=== PATIENT | male | born 1995 | race Hispanic/Latino ===

== ENCOUNTER 2017-02-01 01:51 | Emergency (ER) | payer OTHER ==
[2017-02-01] MEDS ORDERED: Lidocaine 2% w Epi 1:100,000 Inj IJ STA (02:02)
[2017-02-01] MEDS ORDERED: Lidocaine 1% w Epi 1:100,000 Inj ONE (02:05)
--- NOTE | 2017-02-01 03:10 | ED PDOC ---
HPI: Skin/Bite Injury Time Seen by Provider: 02/01/17 02:01 Chief Complaint (Nursing): Alcohol Ingestion Chief Complaint (Provider): Laceration x 3 History Per: Patient, Other (Friend ) Additional Complaint(s): Pt was out drinking with friends. When they got home he was unable to get into his apartment because the silva was not working. Pt then broke window to get into apartment and has laceration on the right shoulder, right elbow and right neck. Tetanus UTD. Past Medical History Reviewed: Historical Data, Nursing Documentation, Vital Signs Vital Signs: Last Vital Signs Temp 98.4 F 02/01/17 01:55 Pulse 104 H 02/01/17 01:55 Resp 16 02/01/17 01:55 BP 148/83 02/01/17 01:55 Pulse Ox 93 L 02/01/17 03:18 - Medical History PMH: No Chronic Diseases - Surgical History Surgical History: No Surg Hx - Family History Family History: States: No Known Family Hx - Living Arrangements Living Arrangements: With Family - Social History Current smoker - smoking cessation education provided: No Alcohol: Occasional Drugs: Denies - Home Medications Home Medications: Ambulatory Orders Medication Instructions Recorded Cephalexin [Keflex] 500 mg PO BID #14 capsule 02/01/17 - Allergies Allergies/Adverse Reactions: Allergies Allergy/AdvReac Type Severity Reaction Status Date / Time peanut Allergy ANAPHYLAXIS Verified 02/01/17 01:54 Review of Systems ROS Statement: Except As Marked, All Systems Reviewed And Found Negative Constitutional: Negative for: Fever, Chills Skin: Positive for: Other Physical Exam - Reviewed Nursing Documentation Reviewed: Yes Vital Signs Reviewed: Yes - Physical Exam Appears: Positive for: Well, Non-toxic, No Acute Distress Head Exam: Positive for: ATRAUMATIC, NORMAL INSPECTION, NORMOCEPHALIC Skin: Positive for: Warm. Negative for: Normal Color ((+) laceration irregular on the right shoulder, 9cm, (+) linear laceration on the right neck and right elbow. ) Eye Exam: Positive for: Normal appearance ENT: Positive for: Normal ENT Inspection Neck: Positive for: Normal, Painless ROM Cardiovascular/Chest: Positive for: Regular Rate, Rhythm Respiratory: Positive for: CNT, Normal Breath Sounds Gastrointestinal/Abdominal: Positive for: Normal Exam, Bowel Sounds, Soft Back: Positive for: Normal Inspection Extremity: Positive for: Normal ROM Neurologic/Psych: Positive for: Alert, Oriented - ECG O2 Sat by Pulse Oximetry: 93 Pulse Ox Interpretation: Normal Disposition - Clinical Impression Clinical Impression: Alcohol abuse, Laceration of neck, Laceration of shoulder, Laceration of elbow - Patient ED Disposition Is Patient to be Admitted: No Counseled Patient/Family Regarding: Diagnosis, Need For Followup - Disposition Disposition: Routine/Home Disposition Time: 03:18 Condition: GOOD Additional Instructions: DO not get wet for 24 hours. Keep clean and dry with antibiotic ointment. Antibiotics twice a day. Suture removal in 8-10 days. Return sooner for signs of infection. Prescriptions: Cephalexin [Keflex] 500 mg PO BID #14 capsule Instructions: Laceration (ED), Care For Your Stitches (ED) Laceration - Laceration Repair Left shoulder Wound Length (In cm): 9cm Description Of Wound: Irregular Wound Cleansed With: Sterile Saline Anesthesia: Lidocaine 1%, With Epi Wound Examination: Irrigated With Saline, No FB With Wound Exploration, No Tendon Injury With Wound Exploration Wound Closure: Suture Suture Technique And Material Used: Prolene (4.0 ) Wound Complexity: Intermediate Left elbow Wound Length (In cm): 3 Description Of Wound: Linear Anesthesia: Lidocaine 1%, With Epi Wound Examination: Irrigated With Saline, No FB With Wound Exploration, No Tendon Injury With Wound Exploration Suture Technique And Material Used: Prolene (#4 4.0) Wound Complexity: Simple Left neck Wound Length (In cm): 3 Description Of Wound: Linear Anesthesia: Lidocaine 1%, With Epi Wound Examination: Irrigated With Saline, No FB With Wound Exploration, No Tendon Injury With Wound Exploration Wound Closure: Suture Suture Technique And Material Used: Prolene (5.0) Wound Complexity: Simple
[2017-02-01 05:25] VITALS: BP 133/72; PULSE 78; RESP 18; TEMP 97.9; O2SAT 100
== END 2017-02-01 05:27 | disposition home or self-care (01) ==
LOC: H.ER 01:51
DX: F10.10 Alcohol abuse, uncomplicated (principal); S11.91XA Laceration without foreign body of unspecified part of neck, initial encounter; S41.011A Laceration without foreign body of right shoulder, initial encounter; S51.011A Laceration without foreign body of right elbow, initial encounter; W25.XXXA Contact with sharp glass, initial encounter